=== PATIENT | female | born 1990 | race Caucasian/White ===

== ENCOUNTER 2018-04-08 13:32 | Emergency (ER) | payer OTHER ==
[2018-04-08] MEDS ORDERED: LIDOCAINE 1% INJ (10 MG/ML) 10 ML MDV INJ ONE (15:59)
[2018-04-08] MEDS ORDERED: BUPIVACAINE HCL 0.5 % INJ/PF 30 ML SDV INJ ONE (16:00)
--- NOTE | 2018-04-08 16:05 | ER Document Report ---
ED Oral Problem - General Chief Complaint: Toothache Stated Complaint: TOOTHACHE Time Seen by Provider: 04/08/18 15:43 Mode of Arrival: Ambulatory Information source: Patient Notes: Patient is a well-nourished well-developed 28-year-old female comes emergency room complaining of severe dental pain. Patient states that started approximately 2 weeks ago. She had schedule appointment to see a dentist a family emergency came up and she could not make it. And then they went to [place] for the holidays. While in [place] the tooth flared up again and her sister happened to have some clindamycin at home so she is taking a total of 3 doses of clindamycin on her way back home yesterday. She has complaint of right upper dental pain with radiation into the right ear and down into the ri ght jaw. She denies any fevers but states that she has not been able to eat or drink anything in the past 36 hours. It is aggravated by anything from palpation to heat and cold sensations. She is attempted everything [id number] to she could find including numbing gels. The do not work. 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 TRAVEL OUTSIDE OF THE [place] IN LAST 30 DAYS: No - HPI Onset: Other - 2 weeks with a different I have no "pain Onset: Gradual Quality of pain: Achy, Sharp Severity: Moderate Pain Level: 3 Context: Recent antibiotic use Sore throat: Mild Swollen jaw/face: Moderate Associated symptoms: Earache, Facial pain, Jaw pain, Toothache Worsened by: Cold Relieved by: Nothing Similar symptoms previously: Yes Recently seen / treated by doctor/dentist: No - Related Data Allergies/Adverse Reactions: No Known Allergies Allergy (Verified 04/08/18 13:32) Past Medical History - General Information source: Patient - Social History Smoking Status: Current Every Day Smoker Cigarette use (# per day): Yes - Quarter pack a day Chew tobacco use (# tins/day): No Smoking Education Provided: Yes Family History: Reviewed & Not Pertinent Patient has suicidal ideation: No Patient has homicidal ideation: No - Past Medical History Cardiac Medical History: Denies: Hx Coronary Artery Disease, Hx Heart Attack, Hx Hypertension Pulmonary Medical History: Denies: Hx Asthma, Hx Bronchitis, Hx COPD, Hx Pneumonia Neurological Medical History: Denies: Hx Cerebrovascular Accident, Hx Seizures Renal/ Medical History: Denies: Hx Peritoneal Dialysis Musculoskeletal Medical History: Denies Hx Arthritis Past Surgical History: Reports: Hx Cholecystectomy - Immunizations Hx Diphtheria, Pertussis, Tetanus Vaccination: Yes - 2011 Review of Systems - Review of Systems Constitutional: No symptoms reported EENT: Ear pain, Dental problem Cardiovascular: No symptoms reported Respiratory: No symptoms reported Gastrointestinal: No symptoms reported Genitourinary: No symptoms reported Female Genitourinary: No symptoms reported Musculoskeletal: No symptoms reported Skin: No symptoms reported Hematologic/Lymphatic: No symptoms reported Neurological/Psychological: No symptoms reported -: Yes All other systems reviewed and negative Physical Exam - Vital signs Vitals: Temp Pulse Resp BP Pulse Ox 98.7 F 72 18 135/92 H 97 04/08/18 13:42 04/08/18 13:42 04/08/18 13:42 04/08/18 13:42 04/08/18 13:42 Interpretation: Hypertensive - Notes Notes: PHYSICAL EXAMINATION: GENERAL: the patient is a well-nourished well-developed 28-year-old morbidly obese female who is in no apparent distress on physical exam today but who does appear in moderate discomfort in moderate pain. She is holding the right side of her face with an ice bag. HEAD:normocephalic. Examination of patient's right side of her face does show that there is some mild swelling along upper jawline almost extending from the zygomatic process down towards the front. There is no fluctuance felt there is no severe induration felt it feels like inflamed tissue. Very light fluffy but not fluctuant. Mild erythema noted in the local area as well. EYES: Pupils equal round and reactive to light, extraocular movements intact, conjunctiva are normal. ENT: Examination patient's area of complaint is her right upper back molar #3. The tooth has decayed out is rotted into the middle and this goes up inside the gum that shows a decayed area. The discharge from around the gum line is noted when pressure is applied. This is a start contrast to the rest of her teeth which look relatively good. NECK: Normal range of motion, supple without lymphadenopathy LUNGS: Breath sounds clear to auscultation bilaterally and equal. No wheezes rales or rhonchi. HEART: Regular rate and rhythm without murmurs Musculoskeletal: Normal range of motion, no pitting or edema. No cyanosis. NEUROLOGICAL: Normal speech, normal gait. Normal sensory, motor exams PSYCH: Normal mood, normal affect. SKIN: Warm, Dry, normal turgor, no rashes or lesions noted. Course - Re-evaluation Re-evalutation: 04/08/18 16:13 I have offered the patient a dental block and she is excepted. I will place her on a continue her on the clindamycin she started. I will give her some pain medications. I have looked her up on the [facility] aware line she does not have any history of narcotic seeking behavior or even getting filled any pain medications from our state. 04/08/18 16:15 My procedure note dental block I used 1 mL of 1% lidocaine without epi and 1 mL of 0.5% Marcaine without epi I then recline patient on the gurney I inserted the needle just anterior to the decayed tooth at the gum cheek line on the upper right side. I slowly injected the area as I injected it patient seem to be getting relief within seconds. She tolerated this very well was very happy with the outcome and there were no complications. - Vital Signs Vital signs: Temp Pulse Resp BP Pulse Ox 98.7 F 72 18 135/92 H 97 04/08/18 13:42 04/08/18 13:42 04/08/18 13:42 04/08/18 13:42 04/08/18 13:42 Discharge - Discharge Clinical Impression: Dental infection, Dental decay Condition: Stable Disposition: HOME, SELF-CARE Instructions: [facility], Oral Narcotic Medication ([facility]), Toothache ([facility]), Clindamycin ([facility]) Additional Instructions: Dental Infection or Abscess You have an infection, perhaps an abscess (pus formation) of the gum around one of your teeth, which is probably decayed. If there is an abscess, it may drain on its own or it may need to be opened or lanced. Severe swelling or drainage around a tooth usually means a deep dental abscess which usually requires evaluation and treatment by a dentist or oral surgeon. Antibiotics may be prescribed while awaiting dental treatment. If you develop high fever with chills, worsening pain, or increasing swelling in the area, see a dentist or oral surgeon immediately or return to the Emergency Department immediately. As of informed you were not dentist so I cannot fix the problem but we can help it. I am going to continue on the clindamycin 4 times a day I am giving some pain medication as well. And it is imperative that you see a dentist as soon as possible. This is something that if he gets out of hand is going to get so bad that you could have loss of hearing or vision. Should you have any concerns or problems over Prescriptions: Clindamycin HCl 300 mg PO Q6 #1 capsule Hydrocodone/Acetaminophen [[place] 7.5-325 Tablet] 1 each PO Q4 PRN #15 tablet PRN Reason: Ibuprofen [Motrin 800 mg Tablet] 800 mg PO Q8H PRN #30 tab PRN Reason: Forms: Elevated Blood Pressure Ref[facility]: [facility] [NO LOCAL MD] - Follow up as needed
[2018-04-08 16:32] VITALS: BP 137/88
== END 2018-04-08 16:33 | disposition home or self-care (01) ==
LOC: ER 13:32
DX: K04.7 Periapical abscess without sinus (principal); K02.9 Dental caries, unspecified; K08.89 Other specified disorders of teeth and supporting structures; H92.01 Otalgia, right ear; F17.210 Nicotine dependence, cigarettes, uncomplicated; E66.01 Morbid (severe) obesity due to excess calories
CPT/HCPCS: 99282; 64400; J3490